=== PATIENT | male | born 1970 ===

== ENCOUNTER 2019-06-16 16:12 | Outpatient (CLI) | payer OTHER ==
[~2019-06-16] VITALS: Ht 172.7 cm; Wt 64.9 kg
[~2019-06-16 16:12] MED LIST: FLONASE16 GM NASAL
== END 2019-06-16 16:27 | disposition home or self-care (01) ==
LOC: OFIC 805 16:12
DX: J31.0 Chronic rhinitis (principal); J34.3 Hypertrophy of nasal turbinates; H61.21 Impacted cerumen, right ear

== ENCOUNTER 2020-03-10 10:47 | Outpatient (CLI) | payer OTHER ==
[~2020-03-10] VITALS: Ht 152.4 cm; Wt 65.8 kg
[2020-03-10] MEDS ORDERED: CIPRODEX OTIC7.5 ML OT (14:58)
[2020-03-10] MEDS ORDERED: FLONASE16 GM NASAL (15:00)
[2020-03-10] MEDS ORDERED: ZYRTEC10 M3 PO (15:00)
== END 2020-03-10 11:12 | disposition home or self-care (01) ==
LOC: OFIC 805 10:47
PROVIDERS: ATTEND Otolaryngology
DX: J34.3 Hypertrophy of nasal turbinates (principal); J31.0 Chronic rhinitis; H61.21 Impacted cerumen, right ear

== ENCOUNTER 2020-08-19 09:27 | Outpatient (CLI) | payer OTHER ==
[~2020-08-19 09:27] MED LIST changes: +CIPRODEX OTIC7.5 ML OT; +ZYRTEC10 M3 PO
== END 2020-08-19 10:20 | disposition home or self-care (01) ==
LOC: OFIC 805 09:27
PROVIDERS: ATTEND Otolaryngology Otology & Neurotology
DX: J31.0 Chronic rhinitis (principal); H60.8X1 Other otitis externa, right ear; H61.21 Impacted cerumen, right ear

== ENCOUNTER 2020-12-05 14:50 | Outpatient (CLI) | payer OTHER | END 2020-12-05 17:06 | disposition home or self-care (01) | LOC: OFIC 805 14:50 | PROVIDERS: ATTEND Otolaryngology Otology & Neurotology | DX: J31.0 Chronic rhinitis (principal); J34.3 Hypertrophy of nasal turbinates; H61.21 Impacted cerumen, right ear; H60.8X1 Other otitis externa, right ear ==

== ENCOUNTER 2022-02-13 09:45 | Outpatient (CLI) | payer OTHER | END 2022-02-13 09:55 | disposition home or self-care (01) | LOC: RAD 09:45 | PROVIDERS: ATTEND Family Medicine | DX: J20.9 Acute bronchitis, unspecified (principal) ==

== ENCOUNTER 2022-06-27 07:41 | Emergency (ER) | payer OTHER ==
[~2022-06-27] VITALS: Ht 177.8 cm; Wt 70.3 kg
[2022-06-27] MEDS ORDERED: BUSPIRONE HCL7.5 MG (07:56)
== END 2022-06-27 13:34 | disposition home or self-care (01) ==
LOC: ER 07:41
DX: K29.70 Gastritis, unspecified, without bleeding (principal); R10.9 Unspecified abdominal pain; K80.20 Calculus of gallbladder without cholecystitis without obstruction

== ENCOUNTER → 2023-01-09 | Outpatient (CLI) | payer OTHER ==
[~2023-01-09] MED LIST changes: +BUSPIRONE HCL7.5 MG
== END | disposition home or self-care (01) ==
LOC: SONOGRAMA 10:31
DX: E04.1 Nontoxic single thyroid nodule (principal)